=== PATIENT | female | born 1985 | race Caucasian/White ===

== ENCOUNTER 2017-12-07 15:05 | Emergency (ER) | payer OTHER, SELFPAY ==
--- NOTE | 2017-12-07 15:10 | ED_ITS ---
HPI - Abdominal Pain <CONNER Lyons - Last Filed: 12/07/17 19:44> General Chief Complaint: Abdominal Pain Stated Complaint: UPPER ABD PAIN Time Seen by Provider: 12/07/17 15:10 History of Present Illness HPI narrative: 32-year-old female here for complaint of having right upper quadrant pain for the last couple of days. She states that she had diarrhea yesterday and felt like she had chills. No known fever. She denies any urinary symptoms. Positive p.o. intake today. She does state that she had increased pain after eating. She denies any relievers of the pain. Pain is limited to the right upper quadrant area. She denies any other concerns or complaints at this time. MD complaint: abdominal pain Related Data Home Medications Medication Instructions Recorded Confirmed sertraline 50 mg PO DAILY 12/07/17 12/07/17 Previous Rx's Medication Instructions Recorded ciprofloxacin HCl 500 mg PO BID #14 tab 12/07/17 metronidazole 500 mg PO TID #21 tab 12/07/17 ondansetron HCl 4 mg PO Q6H PRN #10 tab 12/07/17 Allergies Allergy/AdvReac Type Severity Reaction Status Date / Time No Known Allergies Allergy Unknown Verified 12/07/17 15:57 [NO KNOWN ALLERGIES] Review of Systems <CONNER Lyons - Last Filed: 12/07/17 19:44> Constitutional Denies chills, Denies fever(s), Denies lethargy and Denies weakness Eyes Denies change in vision, Denies eye discharge, Denies irritation and Denies loss of vision ENT Ears, Nose, Mouth, and Throat: Denies change in voice, Denies neck pain and Denies sore throat Cardiovascular Denies chest pain, Denies irregular heart rhythm, Denies lightheadedness, Denies palpitations, Denies dyspnea, Denies dyspnea on exertion and Denies orthopnea Respiratory Denies cough, Denies dyspnea, Denies dyspnea on exertion and Denies wheezing Gastrointestinal Gastrointestinal: Reports abdominal pain Genitourinary Denies hematuria, Denies flank pain, Denies urinary incontinence and Denies urinary urgency Musculoskeletal Denies back pain, Denies muscle weakness, Denies neck pain, Denies numbness and Denies tingling Integumentary/Breasts Denies pruritus, Denies erythema, Denies rash and Denies wounds Neurologic Denies loss of vision, Denies numbness, Denies tingling and Denies weakness Endocrine Denies palpitations Allergic/Immunologic Denies wheezing Exam <CONNER Lyons - Last Filed: 12/07/17 19:44> Initial Vital Signs Initial Vital Signs: Vital Signs Temperature 100.0 F H 12/07/17 15:16 Pulse Rate 79 12/07/17 15:16 Respiratory Rate 20 12/07/17 15:16 Blood Pressure 114/70 12/07/17 15:16 Pulse Oximetry 100 12/07/17 15:16 Const General: cooperative and well developed Nutritional Appearance: well nourished Orientation: alert, awake, oriented x3 and not confused HENMT Mouth: oral mucosae normal and moist mucous membranes Eyes Conjunctivae: conjunctivae normal Sclera: sclerae normal Pupils: PERRL EOM: EOM intact bilaterally Resp Effort & Inspection: normal respiratory effort, able to speak in complete sentences, no respiratory distress and no use of accessory muscles Auscultation: clear to auscultation bilaterally, no rales, no rhonchi and no wheezes Cardio Rate: regular rate Rhythm: regular rhythm Heart Sounds: no click, no gallops, no murmurs and no rubs GI Inspection: non-distended Palpation: soft, no hepatosplenomegaly, No guarding, No pulsatile mass and tender Auscultation: normal bowel sounds Skin General: no rashes or lesions noted, No jaundice and No petechiae <Krystle King DO - Last Filed: 12/08/17 08:29> Initial Vital Signs Initial Vital Signs: Vital Signs Temperature 100.0 F H 12/07/17 15:16 Pulse Rate 79 12/07/17 15:16 Respiratory Rate 20 12/07/17 15:16 Blood Pressure 114/70 12/07/17 15:16 Pulse Oximetry 100 12/07/17 15:16 Course <CONNER Lyons - Last Filed: 12/07/17 19:44> Orders Ordered: Discontinued Medications Sodium Chloride (Normal Saline 0.9%) 1,000 mls @ 1,000 mls/hr IV BOLUS ONE Stop: 12/07/17 16:51 Last Infusion: 12/07/17 18:00 Dose: 0 mls/hr Admin: 12/07/17 16:00 Dose: 1,000 mls/hr Ketorolac Tromethamine (Toradol) 30 mg IV NOW ONE Stop: 12/07/17 15:53 Last Admin: 12/07/17 15:59 Dose: 30 mg Vital Signs - 8 hr 12/07/17 15:16 12/07/17 16:31 12/07/17 17:09 Temperature 100.0 F H Pulse Rate 79 80 81 Respiratory Rate 20 16 Blood Pressure 114/70 Blood Pressure [Right Arm] 102/60 108/66 Pulse Oximetry 100 100 100 12/07/17 18:02 Temperature Pulse Rate 75 Respiratory Rate 12 Blood Pressure Blood Pressure [Right Arm] 114/63 Pulse Oximetry 100 <Krystle King DO - Last Filed: 12/08/17 08:29> Orders Ordered: Discontinued Medications Sodium Chloride (Normal Saline 0.9%) 1,000 mls @ 1,000 mls/hr IV BOLUS ONE Stop: 12/07/17 16:51 Last Infusion: 12/07/17 18:00 Dose: 0 mls/hr Admin: 12/07/17 16:00 Dose: 1,000 mls/hr Ketorolac Tromethamine (Toradol) 30 mg IV NOW ONE Stop: 12/07/17 15:53 Last Admin: 12/07/17 15:59 Dose: 30 mg Vital Signs - 8 hr 12/07/17 15:16 12/07/17 16:31 12/07/17 17:09 Temperature 100.0 F H Pulse Rate 79 80 81 Respiratory Rate 20 16 Blood Pressure 114/70 Blood Pressure [Right Arm] 102/60 108/66 Pulse Oximetry 100 100 100 12/07/17 18:02 Temperature Pulse Rate 75 Respiratory Rate 12 Blood Pressure Blood Pressure [Right Arm] 114/63 Pulse Oximetry 100 MDM - Abdominal Pain <CONNER Lyons - Last Filed: 12/07/17 19:44> Lab Data Result diagrams: 12/07/17 15:50 12/07/17 15:50 Lab Results 12/07/17 12/07/17 12/07/17 Range/Units 15:40 15:50 15:50 WBC 14.5 H (4.5-11.0) X10^3/uL RBC 4.34 (4.0-5.2) X10^6/uL Hgb 13.4 (12.0-16.0) g/dL Hct 38.4 (36-46) % MCV 88.5 (80-100) fL MCH 30.8 (26-34) PG MCHC 34.8 (30-36) % RDW 13.2 (11.6-14.8) % Plt Count 251 (150-400) X10^3/uL Neut % (Auto) 91.5 H (50-75) % Lymph % (Auto) 4.4 L (25-40) % [place] % (Auto) 3.5 (3-14) % Eos % (Auto) 0.0 L (2-4) % Baso % (Auto) 0.6 (0-2) % Neut # (Auto) 71302 H (5749-3181) /uL Sodium 139 (137-145) mmol/L Potassium 3.7 (3.4-5.1) mmol/L Chloride 100 (98-107) mmol/L Carbon Dioxide 27 (22-32) mmol/L BUN 12 (7-17) mg/dL Creatinine 0.70 (0.52-1.04) mg/dL Estimated GFR > 60.0 (>60) mL/min BUN/Creatinine Ratio 17.1 (6-22) Glucose 104 H (70-100) mg/dL Calcium 8.7 (8.4-10.2) mg/dL Total Bilirubin 1.0 (0.2-1.3) mg/dL AST 23 (14-36) IU/L ALT 24 (9-52) IU/L Alkaline Phosphatase 56 (38-126) U/L Total Protein 7.5 (6.3-8.2) g/dL Albumin 4.4 (3.5-5.0) g/dL Globulin 3.1 (1.7-4.1) g/dL Albumin/Globulin Ratio 1.4 (1.0-2.8) Lipase 65 (23-300) U/L Urine RBC 0-1/hpf (0-5/HPF) Urine WBC 0-1/hpf (0-5/HPF) Ur Squamous Epith Cells 0-1 /hpf Urine Bacteria Moderate (10-30) H (None) Ur Culture Indicated? Not Reportable Micro UA Comment Not Reportable Imaging Data CT scan - abdomen: Radiologist's impression: PROCEDURE: CT ABDOMEN PELVIS W CON INDICATIONS: Right upper quadrant pain TECHNIQUE: After the administration of intravenous contrast, 5 mm thick sections acquired from the diaphragm to the symphysis. 5 mm coronal and sagittal reformats were acquired. For radiation dose reduction, the following was used: automated exposure control, adjustment of mA and/or kV according to patient size. COMPARISON: None. FINDINGS: Image quality: Excellent. ABDOMEN: Lung bases: Lung bases are clear. Heart size is normal. Solid organs: Liver is normal in size and enhancement. Gallbladder partially contracted otherwise unremarkable. Biliary system is non dilated. Pancreas enhances normally. Spleen is normal in size and enhancement. No adrenal nodules. Kidneys demonstrate normal size and enhancement, without hydronephrosis. Peritoneum and bowel: No free fluid or free air. There is circumferential wall thickening involving the ascending, transverse and descending colon, with hazy surrounding inflammatory fat stranding. No abscess seen. No evidence of bowel obstruction. The appendix appears normal in the right lower quadrant. Nodes and vessels: No retroperitoneal or mesenteric adenopathy by size criteria. Aorta and inferior vena cava are normal in size. Miscellaneous: No ventral hernias. PELVIS: Genitourinary: Bladder wall thickness is normal. Miscellaneous: No inguinal hernias or adenopathy. Bones: Incidental pedis cavus deformity. No suspicious bony lesions. No vertebral body compression fractures. IMPRESSION: Pancolonic wall thickening in keeping with diffuse colitis which is probably infectious or inflammatory (rather than ischemic). Please correlate clinically and with laboratory data. Normal appendix. Partially contracted gallbladder with otherwise unremarkable appearance. Dictated by: Justin Cooper M.D. on 12/07/2017 at 17:23 Approved by: Justin Cooper M.D. on 12/07/2017 at 17:29 US - abdomen: Radiologist's impression: PROCEDURE: US ABDOMEN COMPLETE INDICATIONS: Pain right upper quad TECHNIQUE: Real-time scanning was performed of the abdominal and retroperitoneal organs, with image documentation. COMPARISON: None. FINDINGS: Liver: Liver is normal in size and homogeneous in echotexture. Gallbladder: No cholelithiasis. Normal gallbladder wall thickness. No pericholecystic fluid. Negative sonographic Benitez's sign. Biliary ducts: Intrahepatic bile ducts are non-dilated. Extrahepatic bile duct caliber measures 4 mm. Normal is 6-7 mm or less in diameter, or 10 mm or less post-cholecystectomy. Pancreas: Visualized portions of the pancreas are sonographically normal. Spleen: Spleen is normal in size and homogeneous in echotexture. Kidneys: Kidneys are normal in size and echotexture. Right kidney measures 11.4 cm long; left kidney measures 9.8 cm long. No hydronephrosis or nephrolithiasis. No solid masses. Aorta: Visualized aorta is normal in caliber at less than 3 cm. Iliacs: Obscured by gas. IVC: Intrahepatic inferior vena cava is patent. Miscellaneous: No free abdominal fluid. IMPRESSION: Normal abdominal ultrasound. No sonographic correlate for the patient's clinically apparent right upper quadrant pain. Dictated by: Hardeep Quintana M.D. on 12/07/2017 at 16:32 Approved by: Hardeep Quintana M.D. on 12/07/2017 at 16:34 [facility] Narrative Medical decision making narrative: Ultrasound of the abdomen was obtained and was negative for any acute findings. CBC shows elevated white count at 14K otherwise lab work was unremarkable. Urinalysis was negative for urinary tract infection. Due to elevated white count and low-grade fevers CT of the abdomen was obtained and shows lewis colonic wall thickening consistent with infectious colitis. Will cover for bacterial infection with ciprofloxacin and metronidazole. She is encouraged to follow up with the primary care provider in the next few days for re-evaluation. [id number] Tylenol Motrin as needed for any discomfort. Plenty of fluids. For any worsening symptoms return to the emergency room. <Krystle King, DO - Last Filed: 12/08/17 08:29> Lab Data Lab Results 12/07/17 12/07/17 12/07/17 Range/Units 15:40 15:50 15:50 WBC 14.5 H (4.5-11.0) X10^3/uL RBC 4.34 (4.0-5.2) X10^6/uL Hgb 13.4 (12.0-16.0) g/dL Hct 38.4 (36-46) % MCV 88.5 (80-100) fL MCH 30.8 (26-34) PG MCHC 34.8 (30-36) % RDW 13.2 (11.6-14.8) % Plt Count 251 (150-400) X10^3/uL Neut % (Auto) 91.5 H (50-75) % Lymph % (Auto) 4.4 L (25-40) % [place] % (Auto) 3.5 (3-14) % Eos % (Auto) 0.0 L (2-4) % Baso % (Auto) 0.6 (0-2) % Neut # (Auto) 19181 H (2970-2581) /uL Sodium 139 (137-145) mmol/L Potassium 3.7 (3.4-5.1) mmol/L Chloride 100 (98-107) mmol/L Carbon Dioxide 27 (22-32) mmol/L BUN 12 (7-17) mg/dL Creatinine 0.70 (0.52-1.04) mg/dL Estimated GFR > 60.0 (>60) mL/min BUN/Creatinine Ratio 17.1 (6-22) Glucose 104 H (70-100) mg/dL Calcium 8.7 (8.4-10.2) mg/dL Total Bilirubin 1.0 (0.2-1.3) mg/dL AST 23 (14-36) IU/L ALT 24 (9-52) IU/L Alkaline Phosphatase 56 (38-126) U/L Total Protein 7.5 (6.3-8.2) g/dL Albumin 4.4 (3.5-5.0) g/dL Globulin 3.1 (1.7-4.1) g/dL Albumin/Globulin Ratio 1.4 (1.0-2.8) Lipase 65 (23-300) U/L Urine RBC 0-1/hpf (0-5/HPF) Urine WBC 0-1/hpf (0-5/HPF) Ur Squamous Epith Cells 0-1 /hpf Urine Bacteria Moderate (10-30) H (None) Ur Culture Indicated? Not Reportable Micro UA Comment Not Reportable Discharge Plan Departure Patient Disposition: Home, Self-Care Clinical Impression: Colitis Discharge Date/Time: 12/07/17 18:16 Interventions: ED Discharge Assessment Last Done: 12/07/17 18:16 Instructions: DI for Colitis Activity Restrictions/Additional Instructions: Abdominal ultrasound was obtained was negative for any acute findings. Laboratory work shows elevated white count indicating possible infection. So CT of the abdomen was obtained and we shows thickening of the colon wall consistent with colitis. With low-grade fever and elevated white count will cover for bacterial infection with antibiotics use as directed. This could be a viral illness however we will cover for bacterial infection. Follow up with her primary care provider in the next few days for re-evaluation. Over-the- counter Tylenol Motrin as needed for any discomfort. Zofran has been prescribed for nausea also use as directed. For any worsening symptoms return to the emergency room. Plenty of fluids. Prescriptions sent to your preferred pharmacy. Prescriptions: New metronidazole 500 mg tablet 500 mg PO TID Qty: 21 RF: 0 ciprofloxacin HCl 500 mg tablet 500 mg PO BID Qty: 14 RF: 0 ondansetron HCl 4 mg tablet 4 mg PO Q6H PRN (Reason: nausea and vomiting) Qty: 10 RF: 0 No Action sertraline 50 mg tablet 50 mg PO DAILY RF: 0 Referrals: Yolis Javed MD [Primary Care Provider] - Jaxon Gonzalez MD [Non-Staff] - <Krystle King DO - Last Filed: 12/08/17 08:29> Cosign ED Attending Sharifature Attestation: I was immediately available in the department for consultation. Documentation has been reviewed. I agree with assessment and plan.
[2017-12-07 15:16] VITALS: BP 114/70; PULSE 79; RESP 20; TEMP 37.8; O2SAT 100; BMI 19.5
--- NOTE | 2017-12-07 15:53 | DI.US.S_ITS ---
PROCEDURE: US ABDOMEN COMPLETE INDICATIONS: Pain right upper quad TECHNIQUE: Real-time scanning was performed of the abdominal and retroperitoneal organs, with image documentation. COMPARISON: None. FINDINGS: Liver: Liver is normal in size and homogeneous in echotexture. Gallbladder: No cholelithiasis. Normal gallbladder wall thickness. No pericholecystic fluid. Negative sonographic Benitez's sign. Biliary ducts: Intrahepatic bile ducts are non-dilated. Extrahepatic bile duct caliber measures 4 mm. Normal is 6-7 mm or less in diameter, or 10 mm or less post-cholecystectomy. Pancreas: Visualized portions of the pancreas are sonographically normal. Spleen: Spleen is normal in size and homogeneous in echotexture. Kidneys: Kidneys are normal in size and echotexture. Right kidney measures 11.4 cm long; left kidney measures 9.8 cm long. No hydronephrosis or nephrolithiasis. No solid masses. Aorta: Visualized aorta is normal in caliber at less than 3 cm. Iliacs: Obscured by gas. IVC: Intrahepatic inferior vena cava is patent. Miscellaneous: No free abdominal fluid. IMPRESSION: Normal abdominal ultrasound. No sonographic correlate for the patient's clinically apparent right upper quadrant pain. Dictated by: Hardeep Quintana M.D. on 12/07/2017 at 16:32 Approved by: Hardeep Quintana M.D. on 12/07/2017 at 16:34
[2017-12-07] MEDS: KETOROLAC 60 MG/2 ML VIAL 30 MG IV (15:59)
[2017-12-07] MEDS: SODIUM CHLORIDE 0.9% 1,000 ML 1000 ML IV (16:00)
[2017-12-07 16:03] LABS: Add Manual Diff / Slide Review NO; Basophils Percent Auto 0.6 % (0-2); Hematocrit 38.4 % (36-46); Hemoglobin 13.4 g/dL (12.0-16.0); Lymphocytes Percent Auto 4.4 % (25-40); Mean Corpuscular HGB Conc 34.8 % (30-36); Mean Corpuscular Hemoglobin 30.8 PG (26-34); Mean Corpuscular Volume 88.5 fL (80-100); Monocytes Percent Auto 3.5 % (3-14); Neutrophils Absolute Auto 13200 /uL (3000-5900); Neutrophils Percent Auto 91.5 % (50-75); Platelet Count 251 X10^3/uL (150-400); Red Blood Cell Count 4.34 X10^6/uL (4.0-5.2); Red Cell Distribution Width 13.2 % (11.6-14.8); White Blood Cell Count 14.5 X10^3/uL (4.5-11.0)
--- NOTE | 2017-12-07 16:17 | DI.CT.S_ITS ---
PROCEDURE: CT ABDOMEN PELVIS W CON INDICATIONS: Right upper quadrant pain TECHNIQUE: After the administration of intravenous contrast, 5 mm thick sections acquired from the diaphragm to the symphysis. 5 mm coronal and sagittal reformats were acquired. For radiation dose reduction, the following was used: automated exposure control, adjustment of mA and/or kV according to patient size. COMPARISON: None. FINDINGS: Image quality: Excellent. ABDOMEN: Lung bases: Lung bases are clear. Heart size is normal. Solid organs: Liver is normal in size and enhancement. Gallbladder partially contracted otherwise unremarkable. Biliary system is non dilated. Pancreas enhances normally. Spleen is normal in size and enhancement. No adrenal nodules. Kidneys demonstrate normal size and enhancement, without hydronephrosis. Peritoneum and bowel: No free fluid or free air. There is circumferential wall thickening involving the ascending, transverse and descending colon, with hazy surrounding inflammatory fat stranding. No abscess seen. No evidence of bowel obstruction. The appendix appears normal in the right lower quadrant. Nodes and vessels: No retroperitoneal or mesenteric adenopathy by size criteria. Aorta and inferior vena cava are normal in size. Miscellaneous: No ventral hernias. PELVIS: Genitourinary: Bladder wall thickness is normal. Miscellaneous: No inguinal hernias or adenopathy. Bones: Incidental pedis cavus deformity. No suspicious bony lesions. No vertebral body compression fractures. IMPRESSION: Pancolonic wall thickening in keeping with diffuse colitis which is probably infectious or inflammatory (rather than ischemic). Please correlate clinically and with laboratory data. Normal appendix. Partially contracted gallbladder with otherwise unremarkable appearance. Dictated by: Justin Cooper M.D. on 12/07/2017 at 17:23 Approved by: Justin Cooper M.D. on 12/07/2017 at 17:29
[2017-12-07 16:25] LABS: Alanine Aminotransferase 24 IU/L (9-52); Albumin 4.4 g/dL (3.5-5.0); Albumin Globulin Ratio 1.4 (1.0-2.8); Alkaline Phosphatase 56 U/L (38-126); Aspartate Aminotransferase 23 IU/L (14-36); BUN Creatinine Ratio 17.1 (6-22); Blood Urea Nitrogen 12 mg/dL (7-17); Calcium 8.7 mg/dL (8.4-10.2); Carbon Dioxide 27 mmol/L (22-32); Chloride 100 mmol/L (98-107); Estimated Glomerular Filt Rate > 60.0 mL/min (>60); Globulin 3.1 g/dL (1.7-4.1); Glucose 104 mg/dL (70-100); HEMOLYSIS < 15 (0-50); Lipase 65 U/L (23-300); Potassium 3.7 mmol/L (3.4-5.1); Sodium 139 mmol/L (137-145); Total Protein 7.5 g/dL (6.3-8.2)
[2017-12-07 16:31] VITALS: BP 102/60; PULSE 80; O2SAT 100
[2017-12-07 17:09] VITALS: BP 108/66; PULSE 81; RESP 16; O2SAT 100
[2017-12-07 17:23] LABS: Bacteria Urine Moderate (10-30); RBC Urine 0-1/HPF (0-5/HPF); WBC Urine 0-1/HPF (0-5/HPF)
[2017-12-07 17:24] LABS: Squamous Epithelial Cell Urine 0-1 /HPF
[2017-12-07 18:02] VITALS: BP 114/63; PULSE 75; RESP 12; O2SAT 100
== END 2017-12-07 18:16 | disposition home or self-care (01) ==
PROVIDERS: Emergency Provider Nurse Practitioner Family; PCP Obstetrics & Gynecology
DX: K52.9 Noninfective gastroenteritis and colitis, unspecified (principal)
CPT/HCPCS: 36591; 74177; 76700; 80053; 81003; 81015; 81025; 83690; 85025; 96361; 96374; 99283; 99285; J1885

== ENCOUNTER 2017-12-08 17:57 | Emergency (ER) | payer OTHER, SELFPAY ==
[2017-12-08 18:08] VITALS: BP 138/93; PULSE 60; RESP 16; O2SAT 100
[2017-12-08 18:12] VITALS: BP 138/93; PULSE 60; RESP 16; TEMP 36.6; O2SAT 100; BMI 19.5
[2017-12-08] MEDS: DICYCLOMINE 10 MG CAPSULE 20 MG PO (19:58)
[2017-12-08] MEDS: KETOROLAC 60 MG/2 ML VIAL 15 MG IV (19:58)
[2017-12-08] MEDS: SODIUM CHLORIDE 0.9% 1,000 ML 1000 ML IV (19:58)
[2017-12-08 20:14] VITALS: BP 115/69; PULSE 57; RESP 16; O2SAT 100
[2017-12-08 20:18] LABS: Add Manual Diff / Slide Review NO; Basophils Percent Auto 0.3 % (0-2); Eosinophils Percent Auto 0.3 % (2-4); Hematocrit 32.1 % (36-46); Hemoglobin 11.2 g/dL (12.0-16.0); Lymphocytes Percent Auto 12.2 % (25-40); Mean Corpuscular HGB Conc 34.9 % (30-36); Mean Corpuscular Hemoglobin 30.8 PG (26-34); Mean Corpuscular Volume 88.2 fL (80-100); Monocytes Percent Auto 7.2 % (3-14); Neutrophils Absolute Auto 4800 /uL (3000-5900); Platelet Count 183 X10^3/uL (150-400); Red Blood Cell Count 3.64 X10^6/uL (4.0-5.2); Red Cell Distribution Width 13.1 % (11.6-14.8)
[2017-12-08 20:27] LABS: Lactate (Lactic Acid) 0.6 mmol/L (0.7-2.1)
[2017-12-08 20:31] LABS: Alanine Aminotransferase 23 IU/L (9-52); Albumin 3.3 g/dL (3.5-5.0); Albumin Globulin Ratio 1.2 (1.0-2.8); Alkaline Phosphatase 56 U/L (38-126); Aspartate Aminotransferase 23 IU/L (14-36); BUN Creatinine Ratio 11.4 (6-22); Bilirubin Total 0.6 mg/dL (0.2-1.3); Blood Urea Nitrogen 8 mg/dL (7-17); Carbon Dioxide 25 mmol/L (22-32); Chloride 105 mmol/L (98-107); Estimated Glomerular Filt Rate > 60.0 mL/min (>60); Globulin 2.7 g/dL (1.7-4.1); Glucose 78 mg/dL (70-100); HEMOLYSIS < 15 (0-50); Lipase 76 U/L (23-300); Potassium 3.9 mmol/L (3.4-5.1); Sodium 140 mmol/L (137-145)
[2017-12-08 20:46] LABS: Procalcitonin 0.16 ng/mL (<0.5)
[2017-12-08 21:36] VITALS: BP 96/59; PULSE 62; RESP 16; O2SAT 98
[2017-12-08 21:49] VITALS: BP 101/66; PULSE 58; RESP 16; TEMP 37; O2SAT 99
--- NOTE | 2017-12-08 21:53 | ED_ITS ---
HPI - Abdominal Pain General Chief Complaint: Abdominal Pain Stated Complaint: RT LOWER ABD PAIN Time Seen by Provider: 12/08/17 18:05 History of Present Illness HPI narrative: HPI 32-year-old female presents for evaluation of ~3 days of poorly characterized epigastric and intermittently right lower quadrant discomfort that is cramping, nonradiating, spasm like in nature, in occurs roughly every 30 minutes is accompanied by frequent watery loose diarrhea. Patient denies fevers, chills, notes mild nausea. Notes emesis ?1 on the first day of symptoms, no further emesis. Denies dysuria, vaginal discharge or discomfort, no recent travel, drinking unpurified water, no blood in stool. Patient was evaluated yesterday with ultrasound, CT scan, and labs, no significant abnormality is found the patient was discharged with conservative management. Patient return due to ongoing symptoms. Past medical history notable for ?3. Prior evaluation notable for: * WBC 14.5, HB 13.4, sodium 139, potassium 3.7, total bilirubin 1.0, AST 23, ALT 24, ALP 56, lipase 65. * UA - negative nitrate, negative leukocyte esterase, 0-1 squamous epithelial cells, moderate bacteria. * Ultrasound abdomen: normal abdominal ultrasound. No sonographic correlate for the patient's clinically apparent right upper quadrant pain. * CT abdomen/pelvis: pending colonic wall thickening in keeping with diffuse colitis which is probably infectious or inflammatory (rather than ischemic). Please correlate clinically with laboratory data. Normal appendix. Partially contracted gallbladder with otherwise unremarkable appearance. * Patient was prescribed ciprofloxacin and metronidazole and encouraged to follow up with their PCP. Patient diagnosed with colitis. M/S/F/SocHx notable for: please see HPI; remainder reviewed with patient and in chart. ROS: Negative constitutional, eye, cardiovascular, pulmonary, GI, , MSK, skin , neurologic, psychiatric, endocrine unless noted in the HPI. Exam Gen: Pleasant, non-toxic appearing, resting comfortably. HEENT: NC, AT, PEERL, EOMI. Resp: Clear to auscultation bilaterally, normal work of breathing, no accessory muscle usage. Card: Regular rate and rhythm with no murmurs, rubs, or gallops, extremities warm and well perfused. GI: mild right lower quadrant and epigastric tenderness palpation, otherwise nontender to palpation throughout all quadrants, no focal tenderness at McBurney 's point, negative Benitez's sign, non-distended, no rebound or guarding. : No suprapubic tenderness to palpation. MSK: No visible deformities, strength and tone without visually appreciable deficit. Skin: Normal color with no visible lesions. Neuro: AO x 3, no facial asymmetry, vision and hearing WNL. Psych: Mood and affect appropriate. Labs / Imaging: WBC 6.0, HB 11.2, sodium 140, potassium 3.9, lactic 0.6, total bilirubin 0.6, AST 23, ALT 23, ALP 56, Procalcitonin 0.16 MDM Previous chart, nursing note, labs, imaging, and vitals reviewed. A: 32-year-old female presents for evaluation of ~3 days of poorly characterized epigastric and intermittently right lower quadrant discomfort that is cramping, nonradiating, spasm like in nature, in occurs roughly every 30 minutes is accompanied by frequent watery loose diarrhea; patient seen for same yesterday and discharged on ciprofloxacin and Flagyl. DDx & Evaluation: Patient with mild abdominal discomfort that is waxing waning consistent with her previous diagnosis of colitis and her current symptoms of watery stool. No evidence of septicemia/bacteremia based on the patient's vital signs, labs, and overall clinical appearance. Patient is resolving leukocytosis , normal procalcitonin. Patient is clinically euvolemic on exam. Patient was given Bentyl with resolution of abdominal pain and a repeat, nontender abdominal exam prior to discharge. Note was made of the questionable UTI on yesterday's evaluation, this will be appropriately treated with the ciprofloxacin that she is previously prescribed. Patient was prescribed Bentyl and instructed to follow up with their PCP if symptoms do not promptly resolve. Also considered on differentials appendicitis, biliary disease, pancreatitis. These were felt to be effectively excluded based on labs, history, and exam. Impression: diarrhea, abdominal pain (please reference below for remainder of encounter information) Related Data Home Medications Medication Instructions Recorded Confirmed sertraline 50 mg PO DAILY 12/07/17 12/07/17 Previous Rx's Medication Instructions Recorded ciprofloxacin HCl 500 mg PO BID #14 tab 12/07/17 metronidazole 500 mg PO TID #21 tab 12/07/17 ondansetron HCl 4 mg PO Q6H PRN #10 tab 12/07/17 Allergies Allergy/AdvReac Type Severity Reaction Status Date / Time No Known Allergies Allergy Unknown Verified 12/07/17 15:57 [NO KNOWN ALLERGIES] PFSH Social History Smoking Status: Never smoker Exam Initial Vital Signs Initial Vital Signs: Vital Signs Pulse Rate 60 12/08/17 18:08 Respiratory Rate 16 12/08/17 18:08 Blood Pressure 138/93 H 12/08/17 18:08 Pulse Oximetry 100 12/08/17 18:08 Course Orders Ordered: ED Orders 12/08/17 19:40 Urinalysis and Microscopic Stat 12/08/17 20:07 Complete Blood Count AUTO DIFF Stat Comprehensive Metabolic Panel Stat Lactate (Lactic Acid) Stat Lipase Stat Procalcitonin Stat Discontinued Medications Dicyclomine HCl (Bentyl) 20 mg PO NOW ONE Stop: 12/08/17 19:49 Last Admin: 12/08/17 19:58 Dose: 20 mg Sodium Chloride (Normal Saline 0.9%) 1,000 mls @ 1,000 mls/hr IV BOLUS ONE Stop: 12/08/17 20:39 Last Infusion: 12/08/17 21:17 Dose: 0 mls/hr Admin: 12/08/17 19:58 Dose: 1,000 mls/hr Ketorolac Tromethamine (Toradol) 15 mg IV NOW ONE Stop: 12/08/17 19:41 Last Admin: 12/08/17 19:58 Dose: 15 mg Vital Signs - 8 hr 12/08/17 18:08 12/08/17 18:12 12/08/17 20:14 Temperature 97.8 F Pulse Rate 60 60 57 L Respiratory Rate 16 16 16 Blood Pressure 138/93 H Blood Pressure [Left Arm] 138/93 H 115/69 Pulse Oximetry 100 100 100 12/08/17 21:36 12/08/17 21:49 Temperature 98.6 F Pulse Rate 62 58 L Respiratory Rate 16 16 Blood Pressure 101/66 Blood Pressure [Left Arm] 96/59 L Pulse Oximetry 98 99 MDM - Abdominal Pain Lab Data Result diagrams: 12/08/17 20:07 12/08/17 20:07 Lab Results 12/08/17 12/08/17 12/08/17 Range/Units 20:07 20:07 20:07 WBC 6.0 D (4.5-11.0) X10^3/uL RBC 3.64 L (4.0-5.2) X10^6/uL Hgb 11.2 L (12.0-16.0) g/dL Hct 32.1 L (36-46) % MCV 88.2 (80-100) fL MCH 30.8 (26-34) PG MCHC 34.9 (30-36) % RDW 13.1 (11.6-14.8) % Plt Count 183 (150-400) X10^3/uL Neut % (Auto) 80.0 H (50-75) % Lymph % (Auto) 12.2 L (25-40) % [place] % (Auto) 7.2 (3-14) % Eos % (Auto) 0.3 L (2-4) % Baso % (Auto) 0.3 (0-2) % Neut # (Auto) 4800 (4408-5517) /uL Sodium 140 (137-145) mmol/L Potassium 3.9 (3.4-5.1) mmol/L Chloride 105 (98-107) mmol/L Carbon Dioxide 25 (22-32) mmol/L BUN 8 (7-17) mg/dL Creatinine 0.70 (0.52-1.04) mg/dL Estimated GFR > 60.0 (>60) mL/min BUN/Creatinine Ratio 11.4 (6-22) Glucose 78 (70-100) mg/dL Lactate (0.7-2.1) mmol/L Calcium 8.0 L (8.4-10.2) mg/dL Total Bilirubin 0.6 (0.2-1.3) mg/dL AST 23 (14-36) IU/L ALT 23 (9-52) IU/L Alkaline Phosphatase 56 (38-126) U/L Total Protein 6.0 L (6.3-8.2) g/dL Albumin 3.3 L (3.5-5.0) g/dL Globulin 2.7 (1.7-4.1) g/dL Albumin/Globulin Ratio 1.2 (1.0-2.8) Lipase 76 (23-300) U/L Procalcitonin 0.16 (<0.5) ng/mL 12/08/17 Range/Units 20:07 WBC (4.5-11.0) X10^3/uL RBC (4.0-5.2) X10^6/uL Hgb (12.0-16.0) g/dL Hct (36-46) % MCV (80-100) fL MCH (26-34) PG MCHC (30-36) % RDW (11.6-14.8) % Plt Count (150-400) X10^3/uL Neut % (Auto) (50-75) % Lymph % (Auto) (25-40) % [place] % (Auto) (3-14) % Eos % (Auto) (2-4) % Baso % (Auto) (0-2) % Neut # (Auto) (3113-4893) /uL Sodium (137-145) mmol/L Potassium (3.4-5.1) mmol/L Chloride (98-107) mmol/L Carbon Dioxide (22-32) mmol/L BUN (7-17) mg/dL Creatinine (0.52-1.04) mg/dL Estimated GFR (>60) mL/min BUN/Creatinine Ratio (6-22) Glucose (70-100) mg/dL Lactate 0.6 L (0.7-2.1) mmol/L Calcium (8.4-10.2) mg/dL Total Bilirubin (0.2-1.3) mg/dL AST (14-36) IU/L ALT (9-52) IU/L Alkaline Phosphatase (38-126) U/L Total Protein (6.3-8.2) g/dL Albumin (3.5-5.0) g/dL Globulin (1.7-4.1) g/dL Albumin/Globulin Ratio (1.0-2.8) Lipase (23-300) U/L Procalcitonin (<0.5) ng/mL Discharge Plan Departure Interventions: ED Discharge Assessment Last Done: 12/08/17 21:49 Prescriptions: No Action sertraline 50 mg tablet 50 mg PO DAILY RF: 0 metronidazole 500 mg tablet 500 mg PO TID Qty: 21 RF: 0 ciprofloxacin HCl 500 mg tablet 500 mg PO BID Qty: 14 RF: 0 ondansetron HCl 4 mg tablet 4 mg PO Q6H PRN (Reason: nausea and vomiting) Qty: 10 RF: 0
== END 2017-12-08 22:21 | disposition home or self-care (01) ==
PROVIDERS: Emergency Provider Emergency Medicine; PCP Obstetrics & Gynecology
DX: R19.7 Diarrhea, unspecified (principal); R10.9 Unspecified abdominal pain
CPT/HCPCS: 36591; 80053; 83605; 83690; 84145; 85025; 96361; 96374; 99283; 99284; J1885